=== PATIENT | male | born 1970 | race Caucasian/White ===

== ENCOUNTER 2018-02-18 00:17 | Inpatient (IN) | payer MEDICAID, OTHER ==
[2018-02-18 00:57] LABS: ADD MAN DIFF? NO
[2018-02-18 00:58] LABS: BASOPHIL # 0.1 10^3/ul (0.0-0.1); BASOPHILS % 0.7 % (0.0-2.0); EOSINOPHILS % 0.5 % (0.0-7.0); HEMOGLOBIN 17.8 g/dl (14.0-18.0); LYMPHOCYTES # 3.5 10^3/ul (0.8-2.9); LYMPHOCYTES % 39.1 % (15.0-51.0); MEAN CORPUSCULAR HEMOGLOBIN 30.7 pg (29.0-33.0); MEAN CORPUSCULAR HGB CONC 35.6 g/dl (32.0-37.0); MEAN CORPUSCULAR VOLUME 86.4 fl (82.0-101.0); MEAN PLATELET VOLUME 8.9 fl (7.4-10.4); MONOCYTE # 0.5 10^3/ul (0.3-0.9); MONOCYTES % 5.6 % (0.0-11.0); NEUTROPHIL # 4.8 10^3/ul (1.6-7.5); NEUTROPHILS % 53.9 % (39.0-77.0); PLATELET COUNT 323 10^3/UL (140-415); RED BLOOD COUNT 5.79 10^6/ul (4.70-6.10); RED CELL DISTRIBUTION WIDTH 13.5 % (11.5-14.5)
[2018-02-18 00:58] LABS: WHITE BLOOD COUNT 8.9 10^3/ul (4.8-10.8)
[2018-02-18 01:17] LABS: ALANINE AMINOTRANSFERASE 112 IU/L (13-69); ALBUMIN 4.5 g/dl (3.3-4.9); ALKALINE PHOSPHATASE 112 IU/L (42-121); ANION GAP 19 (5-13); ASPARTATE AMINO TRANSFERASE 96 IU/L (15-46); BILIRUBIN,INDIRECT 0.4 mg/dl (0-1.1); BILIRUBIN,TOTAL 0.4 mg/dl (0.2-1.3); BLOOD UREA NITROGEN 14 mg/dl (7-20); CARBON DIOXIDE 22 mmol/L (21-31); CHLORIDE 102 mmol/L (97-110); CREATININE 0.89 mg/dl (0.61-1.24); Estimated GFR > 60 mL/min (>60); GLUCOSE 108 mg/dl (70-220); LIPASE 272 U/L (23-300); POTASSIUM 4.3 mmol/L (3.5-5.1); SODIUM 143 mmol/L (135-144)
[2018-02-18 01:29] LABS: B-TYPE NATRIURETIC PEPTIDE < 11 PG/ML (0-125)
[2018-02-18] MEDS: LORAZEPAM 2 MG INJ IV ×4 (02:00→23:28)
[2018-02-18] MEDS: SOD CHLORIDE 0.9% 1,000 ML IV (03:33)
[2018-02-18] MEDS: LORAZEPAM 1 MG TAB PO (09:14)
[2018-02-18 13:24] LABS: CREATINE KINASE 162 IU/L (23-200)
[2018-02-18 13:36] LABS: CK INDEX 0.4; CK-MB 0.68 ng/ml (0.0-2.4); TROPONIN-I 0.015 ng/ml (0.000-0.120)
[2018-02-18] MEDS ORDERED: ACETAMINOPHEN 325 MG TAB PO (15:00)
[2018-02-18] MEDS ORDERED: ONDANSETRON 4 MG INJ IV ×2 (15:00→16:00)
[2018-02-18] MEDS ORDERED: NACL 0.9% 3 ML SYG IV (16:00)
[2018-02-18] MEDS ORDERED: THIAMINE 200 MG INJ IVPB (16:00)
[2018-02-18] MEDS: CLOPIDOGREL 75 MG TAB PO (16:23)
[2018-02-18] MEDS: ASPIRIN 325 MG TAB PO (16:23)
[2018-02-18] MEDS: MULTIVITAMINS 10 ML, THIAMINE 100 MG, FOLIC ACID 1 MG in SOD CHLORIDE 0.9% 1,000 ML IVPB (16:24)
[2018-02-18] MEDS: NICOTINE (14 MG/24 HR) PATCH TRANSDERM (16:24)
[2018-02-18] MEDS ORDERED: THIAMINE 500 MG in SOD CHLORIDE 0.9% 250 ML IV (17:00)
[2018-02-18] MEDS: ACETAMINOPHEN 325 MG TAB PO (18:05)
[2018-02-18] MEDS: THIAMINE 500 MG in SOD CHLORIDE 0.9% 250 ML IV (23:30)
[2018-02-19] MEDS: LORAZEPAM 2 MG INJ IV (04:07)
[2018-02-19 05:37] LABS: ADD MAN DIFF? NO
[2018-02-19 05:43] LABS: BASOPHILS % 0.3 % (0.0-2.0); EOSINOPHILS # 0.1 10^3/ul (0.0-0.5); EOSINOPHILS % 1.3 % (0.0-7.0); HEMATOCRIT 42.4 % (42.0-52.0); HEMOGLOBIN 15.2 g/dl (14.0-18.0); LYMPHOCYTES # 2.5 10^3/ul (0.8-2.9); LYMPHOCYTES % 25.6 % (15.0-51.0); MEAN CORPUSCULAR HGB CONC 35.8 g/dl (32.0-37.0); MEAN CORPUSCULAR VOLUME 86.5 fl (82.0-101.0); MEAN PLATELET VOLUME 9.4 fl (7.4-10.4); MONOCYTE # 0.6 10^3/ul (0.3-0.9); MONOCYTES % 5.8 % (0.0-11.0); NEUTROPHIL # 6.5 10^3/ul (1.6-7.5); NEUTROPHILS % 66.6 % (39.0-77.0); PLATELET COUNT 250 10^3/UL (140-415); RED CELL DISTRIBUTION WIDTH 13.3 % (11.5-14.5)
[2018-02-19 05:43] LABS: WHITE BLOOD COUNT 9.8 10^3/ul (4.8-10.8)
[2018-02-19 05:57] LABS: ALANINE AMINOTRANSFERASE 86 IU/L (13-69); ALBUMIN 3.6 g/dl (3.3-4.9); ALBUMIN/GLOBULIN RATIO 1.38; ALKALINE PHOSPHATASE 87 IU/L (42-121); ANION GAP 9 (5-13); ASPARTATE AMINO TRANSFERASE 70 IU/L (15-46); BILIRUBIN,INDIRECT 0.8 mg/dl (0-1.1); BILIRUBIN,TOTAL 0.8 mg/dl (0.2-1.3); BLOOD UREA NITROGEN 16 mg/dl (7-20); CARBON DIOXIDE 27 mmol/L (21-31); CHLORIDE 100 mmol/L (97-110); CREATININE 0.77 mg/dl (0.61-1.24); Estimated GFR > 60 mL/min (>60); GLUCOSE 115 mg/dl (70-220); MAGNESIUM 1.7 mg/dl (1.7-2.5); PHOSPHORUS 2.9 mg/dl (2.5-4.9); POTASSIUM 3.6 mmol/L (3.5-5.1); SODIUM 136 mmol/L (135-144); TOTAL PROTEIN 6.2 g/dl (6.1-8.1)
[2018-02-19 06:03] LABS: HEMOGLOBIN A1C 5.3 % (0-5.9)
[2018-02-19] MEDS: PANTOPRAZOLE (EC) 40 MG TAB PO (06:04)
[2018-02-19] MEDS: ASPIRIN 81 MG TAB PO (08:39)
[2018-02-19] MEDS: CLOPIDOGREL 75 MG TAB PO (08:39)
[2018-02-19] MEDS: THIAMINE 500 MG in SOD CHLORIDE 0.9% 250 ML IV ×2 (08:39→16:34)
[2018-02-19] MEDS: NICOTINE (14 MG/24 HR) PATCH TRANSDERM (08:40)
[2018-02-19] MEDS: ENOXAPARIN 40 MG/0.4 ML SYG SC (08:41)
[2018-02-19] MEDS: ACETAMINOPHEN 325 MG TAB PO (23:01)
[2018-02-20] MEDS: THIAMINE 500 MG in SOD CHLORIDE 0.9% 250 ML IV ×3 (02:02→16:45)
[2018-02-20] MEDS: PANTOPRAZOLE (EC) 40 MG TAB PO (06:36)
[2018-02-20] MEDS: NICOTINE (14 MG/24 HR) PATCH TRANSDERM (09:00)
[2018-02-20] MEDS: CLOPIDOGREL 75 MG TAB PO (09:41)
[2018-02-20] MEDS: ASPIRIN 81 MG TAB PO (09:41)
[2018-02-20] MEDS: ENOXAPARIN 40 MG/0.4 ML SYG SC (10:12)
[2018-02-20] MEDS: REGADENOSON 0.4 MG/5 ML SYG (12:35)
[2018-02-21] MEDS ORDERED: BENAZEPRIL 10 MG TAB PO (09:00)
== END 2018-02-20 18:23 | disposition home or self-care (01) | DRG 897 ==
LOC: E/R 00:17 → 6WM 14:34
DX: F10.229 Alcohol dependence with intoxication, unspecified (principal); F10.239 Alcohol dependence with withdrawal, unspecified; R07.2 Precordial pain; Y90.8 Blood alcohol level of 240 mg/100 ml or more; F17.210 Nicotine dependence, cigarettes, uncomplicated; I10 Essential (primary) hypertension; E78.5 Hyperlipidemia, unspecified; I25.10 Atherosclerotic heart disease of native coronary artery without angina pectoris; Z79.82 Long term (current) use of aspirin; Z91.14 Patient's other noncompliance with medication regimen; Z91.19 Patient's noncompliance with other medical treatment and regimen; Z95.5 Presence of coronary angioplasty implant and graft
CPT/HCPCS: 36415; 71045; 78452; 80053; 80307; 82550; 82553; 83036; 83690; 83735; 83880; 84100; 84443; 84484; 85025; 93005; 93017; 93306; 96361; 96374; 97110; 97116; 97161; 99285-25

== ENCOUNTER 2018-10-16 07:43 | Emergency (ER) | payer MEDICAID ==
[2018-10-16 08:38] LABS: ADD MAN DIFF? NO
[2018-10-16 08:40] LABS: BASOPHILS % 0.5 % (0.0-2.0); EOSINOPHILS % 0.5 % (0.0-7.0); HEMATOCRIT 47.9 % (42.0-52.0); HEMOGLOBIN 16.9 g/dl (14.0-18.0); LYMPHOCYTES # 3.8 10^3/ul (0.8-2.9); MEAN CORPUSCULAR HGB CONC 35.3 g/dl (32.0-37.0); MEAN CORPUSCULAR VOLUME 85.1 fl (82.0-101.0); MEAN PLATELET VOLUME 8.6 fl (7.4-10.4); MONOCYTE # 0.5 10^3/ul (0.3-0.9); MONOCYTES % 6.3 % (0.0-11.0); NEUTROPHIL # 4.2 10^3/ul (1.6-7.5); NEUTROPHILS % 48.5 % (39.0-77.0); PLATELET COUNT 311 10^3/UL (140-415); RED BLOOD COUNT 5.63 10^6/ul (4.70-6.10); RED CELL DISTRIBUTION WIDTH 13.2 % (11.5-14.5)
[2018-10-16 08:40] LABS: WHITE BLOOD COUNT 8.6 10^3/ul (4.8-10.8)
[2018-10-16 08:58] LABS: ALANINE AMINOTRANSFERASE 54 IU/L (13-69); ALBUMIN 4.5 g/dl (3.3-4.9); ALBUMIN/GLOBULIN RATIO 1.28; ALKALINE PHOSPHATASE 116 IU/L (42-121); ANION GAP 16 (5-13); ASPARTATE AMINO TRANSFERASE 41 IU/L (15-46); BILIRUBIN,INDIRECT 0.6 mg/dl (0-1.1); BILIRUBIN,TOTAL 0.6 mg/dl (0.2-1.3); BLOOD UREA NITROGEN 13 mg/dl (7-20); CALCIUM 9.1 mg/dl (8.4-10.2); CARBON DIOXIDE 22 mmol/L (21-31); CHLORIDE 107 mmol/L (97-110); CREATININE 0.97 mg/dl (0.61-1.24); Estimated GFR > 60 mL/min (>60); GLUCOSE 105 mg/dl (70-220); POTASSIUM 4.1 mmol/L (3.5-5.1); SODIUM 145 mmol/L (135-144)
[2018-10-16 09:09] LABS: TROPONIN-I < 0.012 ng/ml (0.000-0.120)
== END 2018-10-16 10:04 | disposition left against medical advice (07) ==
LOC: FTE 07:43
DX: I10 Essential (primary) hypertension (principal); I25.10 Atherosclerotic heart disease of native coronary artery without angina pectoris; F17.210 Nicotine dependence, cigarettes, uncomplicated; Z79.01 Long term (current) use of anticoagulants; Z79.82 Long term (current) use of aspirin; Z98.61 Coronary angioplasty status
CPT/HCPCS: 36415; 71045; 80053; 84484; 85025; 93005; 99285-25

== ENCOUNTER 2018-10-16 11:39 | Emergency (ER) | payer MEDICAID ==
[2018-10-16 12:16] LABS: ADD MAN DIFF? NO
[2018-10-16 12:22] LABS: WHITE BLOOD COUNT 6.9 10^3/ul (4.8-10.8)
[2018-10-16 12:22] LABS: BASOPHILS % 0.6 % (0.0-2.0); EOSINOPHILS % 0.6 % (0.0-7.0); HEMATOCRIT 47.1 % (42.0-52.0); HEMOGLOBIN 16.5 g/dl (14.0-18.0); LYMPHOCYTES # 3.1 10^3/ul (0.8-2.9); LYMPHOCYTES % 44.3 % (15.0-51.0); MEAN CORPUSCULAR HEMOGLOBIN 29.8 pg (29.0-33.0); MEAN PLATELET VOLUME 9.1 fl (7.4-10.4); MONOCYTE # 0.6 10^3/ul (0.3-0.9); MONOCYTES % 8.3 % (0.0-11.0); NEUTROPHIL # 3.2 10^3/ul (1.6-7.5); NEUTROPHILS % 46.1 % (39.0-77.0); PLATELET COUNT 318 10^3/UL (140-415); RED BLOOD COUNT 5.54 10^6/ul (4.70-6.10); RED CELL DISTRIBUTION WIDTH 13.2 % (11.5-14.5)
[2018-10-16 12:43] LABS: ANION GAP 13 (5-13); BLOOD UREA NITROGEN 12 mg/dl (7-20); CALCIUM 9.1 mg/dl (8.4-10.2); CARBON DIOXIDE 23 mmol/L (21-31); CHLORIDE 105 mmol/L (97-110); CREATININE 0.89 mg/dl (0.61-1.24); Estimated GFR > 60 mL/min (>60); GLUCOSE 119 mg/dl (70-220); POTASSIUM 4.6 mmol/L (3.5-5.1); SODIUM 141 mmol/L (135-144)
[2018-10-16 12:54] LABS: TROPONIN-I < 0.012 ng/ml (0.000-0.120)
[2018-10-16] MEDS: ASPIRIN 325 MG TAB PO (13:32)
== END 2018-10-16 13:44 | disposition home or self-care (01) ==
LOC: E/R 11:39
DX: R07.9 Chest pain, unspecified (principal); R40.2142 Coma scale, eyes open, spontaneous, at arrival to emergency department; R40.2252 Coma scale, best verbal response, oriented, at arrival to emergency department; R40.2362 Coma scale, best motor response, obeys commands, at arrival to emergency department; I10 Essential (primary) hypertension; I25.10 Atherosclerotic heart disease of native coronary artery without angina pectoris; F17.210 Nicotine dependence, cigarettes, uncomplicated; Z98.61 Coronary angioplasty status; Z79.82 Long term (current) use of aspirin
CPT/HCPCS: 36415; 71045; 80048; 80307; 82962; 84484; 85025; 93005; 99285-25